=== PATIENT | female | born 1990 | race African-American/Black ===

== ENCOUNTER 2017-10-11 12:30 | Emergency (ER) | payer MEDICAID ==
[~2017-10-11] VITALS: Ht 175.3 cm; Wt 91.0 kg
[2017-10-11 13:22] VITALS: BP 135/74
== END 2017-10-11 13:35 | disposition home or self-care (01) ==
LOC: ER 12:52
DX: J06.9 Acute upper respiratory infection, unspecified (principal); J45.909 Unspecified asthma, uncomplicated
CPT/HCPCS: 99282